=== PATIENT | female | born 2000 | race Caucasian/White ===

== ENCOUNTER 2022-03-10 14:41 | Emergency (ER) | payer OTHER ==
[~2022-03-10] VITALS: Ht 152.4 cm; Wt 56.8 kg
[2022-03-10] MEDS ORDERED: ONDA-104 PO (15:11)
[2022-03-10 15:46] LABS: BASOPHILS % (AUTO) 0.6 % (0.0-2.0); EOSINOPHILS % (AUTO) 0.1 % (1.0-6.0); HEMATOCRIT 35.4 % (36-46); HEMOGLOBIN 11.5 g/dL (12.0-16.0); LYMPHOCYTES # (AUTO) 2.1 K/uL (1.0-4.8); LYMPHOCYTES % (AUTO) 16.4 % (22.0-44.0); MEAN CORPUSCULAR HEMOGLOBIN 29.9 pg (26.0-34.0); MEAN CORPUSCULAR HGB CONC 32.6 G/dL (31.0-37.0); MEAN CORPUSCULAR VOLUME 92 fL (80-100); MONOCYTES # (AUTO) 0.9 K/uL (0.1-1.0); MONOCYTES % (AUTO) 7.3 % (2.0-9.0); NEUTROPHILS # (AUTO) 9.8 K/uL (1.8-7.7); NEUTROPHILS % (AUTO) 75.6 % (40.0-70.0); PLATELET COUNT (AUTO) 400 K/uL (150-450); RED BLOOD CELL COUNT(AUTO) 3.85 MIL/uL (4.00-5.20); RED CELL DISTRIBUTION WIDTH 12.5 % (11.5-14.5)
[2022-03-10 15:51] LABS: ANION GAP 8 mmol/L (8-16); CALCIUM, TOTAL 9.3 mg/dL (8.8-10.5); CARBON DIOXIDE 25 mmol/L (22-29); CHLORIDE 99 mmol/L (98-107); CREATININE 0.46 mg/dL (0.60-1.30); GLUCOSE,RANDOM 89 mg/dL (70-110); POTASSIUM 3.5 mmol/L (3.5-5.1); SODIUM SERUM 132 mmol/L (136-145); UREA NITROGEN, BLOOD 11 mg/dL (7-18)
[2022-03-10 15:53] LABS: GLOMERULAR FILTR. RATE CALC > 60 mL/min (>60)
[2022-03-10] MEDS: DOXYLAMINE SUCCINATE 25 MG TABLET PO ONE (17:10)
[2022-03-10] MEDS: PYRIDOXINE HCL 50 MG TABLET PO ONE (17:10)
[2022-03-10 17:24] LABS: ALANINE AMINOTRANSFERASE 21 U/L (12-78); ALBUMIN 3.8 g/dL (3.4-5.0); ALKALINE PHOSPHATASE 57 U/L (46-116); ASPARTATE AMINOTRANSFERASE 19 U/L (15-37); BILIRUBIN,TOTAL 0.3 mg/dL (0.1-1.0); HCG,QUANTITATIVE 34400 mIU/mL (0-6); LIPASE 77 U/L (73-393); TOTAL PROTEIN, SERUM 7.7 g/dL (6.4-8.2)
[2022-03-10 17:47] LABS: APPEARANCE,URINE HAZY (CLEAR); BILIRUBIN,URINE NEGATIVE (NEGATIVE); GLUCOSE, URINE (UA) NEGATIVE (NEGATIVE); KETONES,URINE =>150 mg/dL (NEGATIVE); LEUKOCYTE ESTERASE ,URINE LARGE (NEGATIVE); NITRATE,URINE NEGATIVE (NEGATIVE); OCCULT BLOOD,URINE NEGATIVE (NEGATIVE); PROTEIN,URINE TRACE mg/dL (NEGATIVE); SPECIFIC GRAVITIY, URINE 1.027 (1.003-1.030); UROBILINOGEN,URINE <=1.0 mg/dL (<=1.0)
[2022-03-10 17:57] LABS: BACTERIA,URINE Few /HPF (None Seen); RBC,URINE None Seen /HPF (0-2); SQUAMOUS EPITHELIAL CELL,UR Few /LPF (None Seen)
[2022-03-10 18:17] VITALS: BP 129/72
[2022-03-10] MEDS ORDERED: CEPHALEXIN MONOHYDRATE 500 MG CAPSULE PO ONE (18:30)
[2022-03-10] MEDS ORDERED: DOXY1TAB3 PO (18:42)
== END 2022-03-10 18:50 | disposition home or self-care (01) ==
LOC: EMS 14:50
DX: O21.9 Vomiting of pregnancy, unspecified (principal); O26.891 Other specified pregnancy related conditions, first trimester; R30.0 Dysuria; Z3A.08 8 weeks gestation of pregnancy
CPT/HCPCS: 76801; 80053; 81001; 83690; 84702; 85025; 87086; 99284